=== PATIENT | male | born 1990 | race Caucasian/White ===

== ENCOUNTER 2018-03-13 12:15 | Emergency (ER) | payer SELFPAY ==
--- NOTE | 2018-03-13 13:35 | RAD REPORT ---
EXAM DESCRIPTION: RAD - Chest Pa And Lat (2 Views) - 03/13/2018 1:30 pm CLINICAL HISTORY: Chest pain. COMPARISON: 02/01/2018, 06/09/2014 FINDINGS: The lungs are clear. The heart is normal in size. No displaced fractures. IMPRESSION: No acute or concerning finding suspected.
[2018-03-13 14:58] LABS: Urine Blood NEGATIVE (NEG); Urine Glucose NEGATIVE (NEG); Urine Protein TRACE (NEG); Urine pH 8.5 (5.0-7.0)
--- NOTE | 2018-03-13 14:59 | ER ---
Nurse's Notes [facility] Name: Huseyin Cuba Age: 28 yrs Sex: Male : 1990 Arrival Date: 03/13/2018 Time: 12:16 Bed 25 Private MD: Diagnosis: Pleurisy;Muscle spasm Presentation: 03/13 12:25 Presenting complaint: Patient states: " When I take deep breaths my kidneys hurt. I ph have had fever and I have been throwing up." Pt reports low back pain, N/V, and dizziness upon ambulation, denies diarrhea or urinary symptoms. Transition of care: patient was not received from another setting of care. Onset of symptoms was March 13, 2018. Initial Sepsis Screen: Does the patient meet any 2 criteria? No. Patient's initial sepsis screen is negative. Does the patient have a suspected source of infection? No. Patient's initial sepsis screen is negative. Care prior to arrival: None. 12:25 Method Of Arrival: Ambulatory 12:25 Acuity: RENITA 3 ph Historical: - Allergies: 12:28 No Known Allergies; ph - Home Meds: 12:28 None [Active]; ph - PMHx: 12:28 None; ph - PSHx: 12:28 None; ph - Immunization history:: Adult Immunizations unknown. - Social history:: Smoking status: Patient uses tobacco products, smokes one-half pack cigarettes per day. - Family history:: not pertinent. - Hospitalizations: : No recent hospitalization is reported. Screenin:15 Abuse screen: Denies threats or abuse. Denies injuries from another. Nutritional kr2 screening: No deficits noted. Tuberculosis screening: No symptoms or risk factors identified. Fall Risk None identified. Assessment: 13:25 General: Appears in no apparent distress. comfortable, well groomed, well developed, kr2 well nourished, Behavior is calm, cooperative, appropriate for age. Pain: Complains of pain in lower back and chest when coughing Pain currently is 4 out of 10 on a pain scale. Quality of pain is described as aching, sharp, Pain began 2-3 days ago. Is intermittent. Neuro: Level of Consciousness is awake, alert, obeys commands, Oriented to person, place, time, situation. Cardiovascular: Heart tones S1 S2 present Capillary refill < 3 seconds in bilateral fingers Patient's skin is warm and dry. Respiratory: Reports cough that is non-productive, Airway is patent Respiratory effort is even, unlabored, Respiratory pattern is regular, symmetrical. GI: Abdomen is flat, non-distended. : Urine is clear. EENT: Nares are clear Oral mucosa is moist. Derm: Skin is intact, is healthy with good turgor, Skin is pink, warm \\T\\ dry. Musculoskeletal: Circulation, motion, and sensation intact. 14:30 Reassessment: Patient appears in no apparent distress at this time. Patient and/or kr2 family updated on plan of care and expected duration. Pain level reassessed. Patient is alert, oriented x 3, equal unlabored respirations, skin warm/dry/pink. Patient states feeling better. 15:43 Reassessment: Patient appears in no apparent distress at this time. Patient and/or kr2 family updated on plan of care and expected duration. Pain level reassessed. Patient is alert, oriented x 3, equal unlabored respirations, skin warm/dry/pink. Patient denies pain at this time. Vital Signs: 12:28 BP 116 / 94; Pulse 93; Resp 18; Temp 98.4; Pulse Ox 97% on R/A; Weight 72.57 kg; Height ph 6 ft. 0 in. (182.88 cm); Pain 8/10; 13:45 BP 120 / 72; Pulse 90; Resp 17; Pulse Ox 100% on R/A; kr2 15:30 BP 116 / 90; Pulse 90; Resp 15; Pulse Ox 99% on R/A; kr2 12:28 Body Mass Index 21.70 (72.57 kg, 182.88 cm) ph ED Course: 12:16 Patient arrived in ED. as 12:27 Triage completed. ph 12:30 Arm band placed on. ph 13:10 Erick Sanford MD is Attending Physician. rn 13:10 Patient has correct armband on for positive identification. Bed in low position. Call kr2 light in reach. Side rails up X2. Pulse ox on. NIBP on. 13:14 Patient moved to radiology via wheelchair. kw1 13:30 Chest Pa And Lat (2 Views) XRAY In Process Unspecified. EDMS 13:34 X-ray completed. Patient tolerated procedure well. Patient moved back from radiology. mh1 15:17 Collette Shen, RN is Primary Nurse. kr2 15:19 EKG done, by facilities maintenance technician. reviewed by Erick Sanford MD. at1 15:46 No provider procedures requiring assistance completed. Patient did not have IV access kr2 during this emergency room visit. Administered Medications: 15:24 Drug: Albuterol 2.5 mg Route: Inhalation; kr2 15:45 Follow up: Response: No adverse reaction; Marked relief of symptoms kr2 Outcome: 14:59 Discharge ordered by . rn 15:46 Discharged to home ambulatory. kr2 15:46 Condition: good 15:46 Discharge instructions given to patient, Instructed on discharge instructions, follow up and referral plans. medication usage, Demonstrated understanding of instructions, follow-up care, medications, Prescriptions given X 1. 15:46 Patient left the ED. kr2 Signatures: Dispatcher [employer] EDMS Page Diaz mh1 Charu Zamorano Roman, MD MD rn Consuelo bernard, mill house supervisor EKG Tat1 Selene Adams RN RN Collette Shen RN RN kr2 Pauline Gray 1
--- NOTE | 2018-03-13 14:59 | EDPHYS ---
Physician Documentation [facility] Name: Huseyin Cuba Age: 28 yrs Sex: Male : 1990 Arrival Date: 03/13/2018 Time: 12:16 Bed 25 Private MD: ED Physician Erick Sanford HPI: 03/13 14:54 This 28 yrs old Male presents to ER via Ambulatory with complaints of rn Vomiting, Low Back Pain, Cough. 14:54 The patient or guardian reports cough, that is intermittent, described as mild. Onset: rn The symptoms/episode began/occurred 2 week(s) ago. Severity of symptoms: At their worst the symptoms were mild, in the emergency department the symptoms are unchanged. Modifying factors: The symptoms are alleviated by nothing, the symptoms are aggravated by nothing. The patient has not experienced similar symptoms in the past. Reports smokes, + cough for 2 weeks, lately has been having right sided chest and back pain with breathing, states coughs so much he gags and throws up, no abd pain. . Historical: - Allergies: 12:28 No Known Allergies; ph - Home Meds: 12:28 None [Active]; ph - PMHx: 12:28 None; ph - PSHx: 12:28 None; ph - Immunization history:: Adult Immunizations unknown. - Social history:: Smoking status: Patient uses tobacco products, smokes one-half pack cigarettes per day. - Family history:: not pertinent. - Hospitalizations: : No recent hospitalization is reported. ROS: 14:54 Constitutional: + fever and chills Eyes: Negative for injury, pain, redness, and security intern, Neck: Negative for injury, pain, and swelling, Cardiovascular: Negative for palpitations, and edema, Respiratory: + pleuritic pain, + cough Abdomen/GI: Negative for abdominal pain, nausea, vomiting, diarrhea, and constipation, Back: Negative for injury and pain, MS/Extremity: Negative for injury and deformity, Skin: Negative for injury, rash, and discoloration, Neuro: Negative for headache, weakness, numbness, tingling, and seizure. Exam: 14:54 Constitutional: This is a well developed, well nourished patient who is awake, alert, rn and in no acute distress. Head/Face: Normocephalic, atraumatic. Eyes: Pupils equal round and reactive to light, extra-ocular motions intact. Lids and lashes normal. Conjunctiva and sclera are non-icteric and not injected. Cornea within normal limits. Periorbital areas with no swelling, redness, or edema. Neck: Trachea midline, no thyromegaly or masses palpated, and no cervical lymphadenopathy. Supple, full range of motion without nuchal rigidity, or vertebral point tenderness. No Meningismus. Cardiovascular: Regular rate and rhythm with a normal S1 and S2. No gallops, murmurs, or rubs. Normal PMI, no JVD. No pulse deficits. Respiratory: Lungs have equal breath sounds bilaterally, clear to auscultation and percussion. No rales, rhonchi or wheezes noted. No increased work of breathing, no retractions or nasal flaring. Abdomen/GI: Soft, non-tender, with normal bowel sounds. No distension or tympany. No guarding or rebound. No evidence of tenderness throughout. Back: No spinal tenderness. No costovertebral tenderness. Full range of motion. MS/ Extremity: Pulses equal, no cyanosis. Neurovascular intact. Full, normal range of motion. Equal circumference. Neuro: Awake and alert, GCS 15, oriented to person, place, time, and situation. Cranial nerves II-XII grossly intact. Motor strength 5/5 in all extremities. Sensory grossly intact. Cerebellar exam normal. Normal gait. Vital Signs: 12:28 BP 116 / 94; Pulse 93; Resp 18; Temp 98.4; Pulse Ox 97% on R/A; Weight 72.57 kg; Height ph 6 ft. 0 in. (182.88 cm); Pain 8/10; 13:45 BP 120 / 72; Pulse 90; Resp 17; Pulse Ox 100% on R/A; kr2 15:30 BP 116 / 90; Pulse 90; Resp 15; Pulse Ox 99% on R/A; kr2 12:28 Body Mass Index 21.70 (72.57 kg, 182.88 cm) ph MDM: 13:10 Patient medically screened. rn 14:54 Differential Diagnosis: Bronchitis Influenza Upper Respiratory Infection Viral Syndrome rn Pneumonia. Data reviewed: vital signs, nurses notes, lab test result(s), EKG, radiologic studies, plain films, and as a result, I will discharge patient. Counseling: I had a detailed discussion with the patient and/or guardian regarding: the historical points, exam findings, and any diagnostic results supporting the discharge/admit diagnosis, lab results, radiology results, the need for outpatient follow up, to return to the emergency department if symptoms worsen or persist or if there are any questions or concerns that arise at home. Response to treatment: the patient's symptoms have mildly improved after treatment, and as a result, I will discharge patient. Special discussion: Based on the patient's history, exam, and Dx evaluation, there is no indication for emergent intervention or inpatient Tx. It is understood by the patient/guardian that if the Sx's persist or worsen they need to return immediately for re-evaluation. I discussed with the patient/guardian in detail that at this point there is no indication for admission to the hospital. It is understood, however, that if the symptoms persist or worsen the patient needs to return immediately for re-evaluation. ED course: Pt with pleuritic symptoms in setting of cough/congestion/viral syndrome for 2 weeks, cxr clear, normal vitals, will dc home with abx and OTC anti inflammatories, return precautions given and understood, recommended cessation of smoking.. 03/13 13:15 Order name: Flu; Complete Time: 14:52 rn 03/13 12:57 Order name: Chest Pa And Lat (2 Views) XRAY; Complete Time: 13:43 snw 03/13 13:15 Order name: Strep; Complete Time: 14:52 rn 03/13 14:31 Order name: Throat Culture EDGA 03/13 14:33 Order name: Urine Dipstick--Ancillary (enter results); Complete Time: 15:00 jw5 03/13 12:57 Order name: Urine Dipstick-Ancillary (obtain specimen); Complete Time: 15:25 snw 03/13 13:15 Order name: EKG; Complete Time: 13:16 rn 03/13 13:15 Order name: EKG - Nurse/Tech; Complete Time: 15:24 rn Administered Medications: 15:24 Drug: Albuterol 2.5 mg Route: Inhalation; kr2 15:45 Follow up: Response: No adverse reaction; Marked relief of symptoms kr2 Disposition: 03/13/18 14:59 Discharged to Home. Impression: Pleurisy, Muscle spasm. - Condition is Stable. - Discharge Instructions: Pleurisy. - Prescriptions for Zithromax Z- Jasiel 250 mg Oral Tablet - take 1 tablet by ORAL route as directed for 5 days Day 1 - take two (2) tablets one time. Day 2, 3, 4 , 5 take one (1) tablet once daily.; 6 tablet. - Medication Reconciliation Form, Thank You Letter, Antibiotic Education, Prescription Opioid Use, Work release form form. - Follow up: Private Physician; When: As needed; Reason: Recheck today's complaints, Re-evaluation by your physician. - Problem is an ongoing problem. - Symptoms have improved. Signatures: Dispatcher [employer] EDGA Maddi Parker, DRILL SERGEANT-C DRILL SERGEANT-Csnw Erick Sanford MD MD rn Hall, Patricia RN RN Collette Shen RN RN kr2
[2018-03-13] MEDS ORDERED: ALBUTEROL 2.5 MG/3 ML NEB SOL ONE (15:21)
[2018-03-13 15:51] VITALS: TEMP 98.4
[2018-03-13 15:53] VITALS: BP 116/90; O2SAT 99
--- NOTE | 2018-03-13 16:27 | EKG ---
Test Date: 2018-03-13 Test Time: 15:06:04 Public Stenographer: IAIN MEASUREMENT RESULTS: Intervals: Rate: 62 ME: 140 QRSD: 94 QT: 374 QTc: 379 [place]: P: 39 ME: 140 QRS: 78 T: 72 INTERPRETIVE STATEMENTS: Sinus rhythm with premature atrial complexes Otherwise normal ECG No previous ECG available for comparison Electronically Signed On 03-13-18 16:26:43 CDT by Jose F Ma
== END 2018-03-13 15:46 | disposition home or self-care (01) ==
LOC: ER 12:15
DX: R09.1 Pleurisy (principal); M62.838 Other muscle spasm; F17.210 Nicotine dependence, cigarettes, uncomplicated
CPT/HCPCS: 71046; 81003; 87070; 87081; 87804; 93005; 99284

== ENCOUNTER 2018-04-15 17:39 | Emergency (ER) | payer SELFPAY ==
[2018-04-15] MEDS ORDERED: TETRACAINE HCL 0.5% 2ML OPTH ONE (18:09)
[2018-04-15] MEDS ORDERED: FLUORESCEIN SODIUM 0.6 MG/WRAP ONE (18:09)
--- NOTE | 2018-04-15 18:29 | EDPHYS ---
Physician Documentation [facility] Name: Huseyin Cuba Age: 28 yrs Sex: Male : 1990 Arrival Date: 04/15/2018 Time: 17:42 Bed 13 Private MD: ED Physician Kranthi Sears HPI: 04/15 18:00 This 28 yrs old Male presents to ER via Ambulatory with complaints of Eye cp Problem. 18:00 redness and swelling of area below and medial to right eye. cp 18:00 Onset: The symptoms/episode began/occurred yesterday. Duration: the symptoms are cp continuous. Associated signs and symptoms: Pertinent negatives: ear ache, fever, headache. Patient does not utilize any form of vision correction. 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 Historical: - Allergies: 17:45 No Known Allergies; la1 - Home Meds: 17:51 None [Active]; rb1 - PMHx: 17:45 None; la1 - PSHx: 17:51 None; rb1 - Immunization history:: Adult Immunizations up to date. - Social history:: Smoking status: Patient uses tobacco products, smokes one-half pack cigarettes per day. ROS: 18:05 Constitutional: Negative for body aches, chills, fever, poor PO intake. cp 18:05 Eyes: Negative for discharge, foreign body sensation, pain, visual disturbance. cp 18:05 ENT: Negative for drainage from ear(s), ear pain, sore throat, difficulty swallowing, difficulty handling secretions. 18:05 Cardiovascular: Negative for chest pain. 18:05 Respiratory: Negative for cough, shortness of breath, wheezing. 18:05 Abdomen/GI: Negative for abdominal pain, nausea, vomiting, and diarrhea. 18:05 Neuro: Negative for altered mental status, headache. 18:05 All other systems are negative. Exam: 18:08 Visual Acuity: I have reviewed the nursing documentation. cp 18:08 Constitutional: The patient appears in no acute distress, alert, awake, non-toxic, well cp developed, well nourished. 18:08 Head/face: Noted is erythema, that is mild, swelling, that is mild, of the area medial and below right eye. 18:08 Eyes: Pupils: equal, round, and reactive to light and accomodation, Extraocular movements: intact throughout, Conjunctiva: normal, no exudate, no injection, Corneas: abrasion, is not appreciated, foreign body, is not appreciated, a fluorescein strip employed to appreciate the findings, Sclera: no appreciated abnormality, Lids and lashes: appear normal, bilaterally, Visual shah: are intact. 18:08 ENT: External ear(s): are unremarkable, Ear canal(s): are normal, clear, TM's: bulging, is not appreciated, bilaterally, dullness, bilaterally, erythema, is not appreciated, bilaterally, Nose: is normal, Mouth: Lips: moist, Oral mucosa: pink and intact, moist, Posterior pharynx: is normal, airway is patent, no erythema, no exudate. 18:08 Neck: External neck: is normal, ROM/movement: is normal, is supple, without pain, no range of motions limitations, no meningismus, no nuchal rigidity, Lymph nodes: no appreciated lymphadenopathy. 18:08 Chest/axilla: Inspection: normal, Palpation: is normal, no crepitus, no tenderness. 18:08 Cardiovascular: Rate: normal, Rhythm: regular. 18:08 Respiratory: the patient does not display signs of respiratory distress, Respirations: normal, no use of accessory muscles, no retractions, no splinting, no tachypnea, labored breathing, is not present, Breath sounds: are clear throughout, no decreased breath sounds, no stridor, no wheezing. 18:08 Abdomen/GI: Exam negative for discomfort, distension, guarding, Inspection: abdomen appears normal. 18:08 Skin: cellulitis, is not appreciated. 18:08 Neuro: Orientation: to person, place \T\ time. Mentation: lucid, able to follow commands, Cerebellar function: is grossly normal, Motor: moves all fours, strength is normal. Vital Signs: 17:45 BP 127 / 69; Pulse 79; Resp 16; Temp 97.5; Pulse Ox 100% on R/A; Weight 70.31 kg; la1 Height 6 ft. 1 in. (185.42 cm); 18:39 BP 124 / 67; Pulse 63; Resp 17; Pulse Ox 99% on R/A; rb1 17:45 Body Mass Index 20.45 (70.31 kg, 185.42 cm) la1 Visual Acuity: 17:49 Left Eye Visual acuity 20/20, Pupil size 4 mm, ; Right Eye Visual acuity 20/20, Pupil la1 size 4 mm, ; Both Eyes Visual acuity 20/20; Without Lenses; MDM: 17:52 Patient medically screened. cp 18:00 Differential diagnosis: Corneal abrasion of Corneal ulcer of cellulitis. cp 18:28 Data reviewed: vital signs, nurses notes, and as a result, I will discharge patient. cp 18:28 Counseling: I had a detailed discussion with the patient and/or guardian regarding: the cp historical points, exam findings, and any diagnostic results supporting the discharge/admit diagnosis, the need for outpatient follow up, a family practitioner, to return to the emergency department if symptoms worsen or persist or if there are any questions or concerns that arise at home. 04/15 17:55 Order name: Visual Acuity; Complete Time: 18:14 cp 04/15 17:55 Order name: Eye Tray; Complete Time: 18:16 04/15 17:55 Order name: Fluoresene Opth strip; Complete Time: 18:14 cp Administered Medications: 18:10 Drug: Tetracaine Drops 0.5 % 1 drops Route: Ophthalmic; Site: right eye; rb1 Disposition: 19:00 Chart complete. 04/16 07:49 Co-signature as Attending Physician, Kranthi Sears MD I agree with the assessment and cosmo plan of care. Disposition: 04/15/18 18:29 Discharged to Home. Impression: Irritant contact dermatitis. - Condition is Stable. - Discharge Instructions: Contact Dermatitis. - Prescriptions for Prednisone 20 mg Oral Tablet - take 2 tablet by ORAL route once daily for 5 days; 10 tablet. Vistaril 25 mg Oral capsule - take 1 capsule by ORAL route 4 times per day As needed for itching and burning. may cause drowsiness; 30 capsule. - Medication Reconciliation Form, Thank You Letter, Antibiotic Education, Prescription Opioid Use, Work release form form. - Follow up: Private Physician; When: 2 - 3 days; Reason: Recheck today's complaints. - Problem is new. - Symptoms are unchanged. Signatures: Kranthi Sears MD MD cha Attema, Lee RN RN la1 Kranthi Rivera PA PA cp Barber, Rebecca RN RN rb1 Corrections: (The following items were deleted from the chart) 04/15 18:41 18:29 04/15/2018 18:29 Discharged to Home. Impression: Irritant contact dermatitis. rb1 Condition is Stable. Forms are Medication Reconciliation Form, Thank You Letter, Antibiotic Education, Prescription Opioid Use. Follow up: Private Physician; When: 2 - 3 days; Reason: Recheck today's complaints. Problem is new. Symptoms are unchanged. cp
--- NOTE | 2018-04-15 18:29 | ER ---
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 Transition of care: patient was not received from another setting of care. Onset of symptoms was April 15, 2018. Initial Sepsis Screen: Does the patient meet any 2 criteria? No. Patient's initial sepsis screen is negative. Does the patient have a suspected source of infection? No. Patient's initial sepsis screen is negative. Care prior to arrival: None. 17:44 Method Of Arrival: Ambulatory la1 17:44 Acuity: RENITA 4 la1 Historical: - Allergies: 17:45 No Known Allergies; la1 - Home Meds: 17:51 None [Active]; rb1 - PMHx: 17:45 None; la1 - PSHx: 17:51 None; rb1 - Immunization history:: Adult Immunizations up to date. - Social history:: Smoking status: Patient uses tobacco products, smokes one-half pack cigarettes per day. Screenin:51 Abuse screen: Denies threats or abuse. Nutritional screening: No deficits noted. rb1 Tuberculosis screening: No symptoms or risk factors identified. Fall Risk None identified. Assessment: 17:51 General: Appears in no apparent distress. comfortable, Behavior is calm, cooperative, rb1 Reports chills for. Pain: Denies pain. Neuro: Level of Consciousness is awake, alert, obeys commands, Oriented to person, place, time, situation. Cardiovascular: Capillary refill < 3 seconds is brisk in bilateral fingers. Respiratory: Airway is patent Respiratory effort is even, unlabored, Respiratory pattern is regular, symmetrical. GI: No signs and/or symptoms were reported involving the gastrointestinal system. : No signs and/or symptoms were reported regarding the genitourinary system. EENT: Eyes are tearing on outer aspect of conjuctiva of right eye and inner aspect of conjuctiva of right eye pt. stated, "My eye was crusty this morning.". Derm: Skin is pink, warm \\T\\ dry. Musculoskeletal: Range of motion: intact in all extremities. Vital Signs: 17:45 BP 127 / 69; Pulse 79; Resp 16; Temp 97.5; Pulse Ox 100% on R/A; Weight 70.31 kg; la1 Height 6 ft. 1 in. (185.42 cm); 18:39 BP 124 / 67; Pulse 63; Resp 17; Pulse Ox 99% on R/A; rb1 17:45 Body Mass Index 20.45 (70.31 kg, 185.42 cm) la1 Visual Acuity: 17:49 Left Eye Visual acuity 20/20, Pupil size 4 mm, ; Right Eye Visual acuity 20/20, Pupil la1 size 4 mm, ; Both Eyes Visual acuity 20/20; Without Lenses; ED Course: 17:42 Patient arrived in ED. sb2 17:45 Triage completed. la1 17:45 Arm band placed on right wrist. la1 17:51 Patient has correct armband on for positive identification. Bed in low position. Call rb1 light in reach. Side rails up X 1. Pulse ox on. NIBP on. 17:52 Kranthi Rivera PA is PHCP. cp 17:52 Kranthi Sears MD is Attending Physician. cp 18:06 Dunia Saba, RN is Primary Nurse. rb1 18:40 No provider procedures requiring assistance completed. Patient did not have IV access rb1 during this emergency room visit. Administered Medications: 18:10 Drug: Tetracaine Drops 0.5 % 1 drops Route: Ophthalmic; Site: right eye; rb1 Outcome: 18:29 Discharge ordered by MD. cp 18:40 Discharged to home ambulatory, with significant other. rb1 18:40 Condition: stable 18:40 Discharge instructions given to patient, Instructed on discharge instructions, follow up and referral plans. medication usage, Demonstrated understanding of instructions, follow-up care, medications, Prescriptions given X 2. 18:41 Patient left the ED. rb1 Signatures: Eyad Merino RN RN la1 Kranthi Rivera PA PA cp Dunia Saba, RN RN rb1 Irais Rehman sb2
[2018-04-15 18:49] VITALS: TEMP 97.5
[2018-04-15 18:51] VITALS: BP 124/67; O2SAT 99
== END 2018-04-15 18:41 | disposition home or self-care (01) ==
LOC: ER 17:39
DX: L24.9 Irritant contact dermatitis, unspecified cause (principal)
CPT/HCPCS: 99283

== ENCOUNTER 2019-02-13 09:12 | Emergency (ER) | payer SELFPAY ==
[2019-02-13] MEDS ORDERED: ACETAMINOPHEN 500 MG TAB ONE (10:08)
--- NOTE | 2019-02-13 10:22 | EDPHYS ---
Physician Documentation [facility] Name: Huseyin Cuba Age: 28 yrs Sex: Male : 1990 Arrival Date: 02/13/2019 Time: 09:13 Bed 9 Private MD: None, None ED Physician Kranthi Sears HPI: 02/13 09:58 This 28 yrs old Male presents to ER via Ambulatory with complaints of Flu pm1 Symptoms. 09:58 The patient or guardian reports cough, flu symptoms. Onset: The symptoms/episode pm1 began/occurred 3 day(s) ago. Severity of symptoms: in the emergency department the symptoms are actually worse. Modifying factors: The symptoms are alleviated by nothing, the symptoms are aggravated by nothing. Associated signs and symptoms: Pertinent positives: earache, fever, rhinorrhea, sore throat, nasal congestion, Pertinent negatives: chest pain, diarrhea, vomiting. The patient has not recently seen a physician. Historical: - Allergies: 09:32 No Known Allergies; iw - Home Meds: 09:32 None [Active]; iw - PMHx: 09:32 None; iw - Immunization history:: Adult Immunizations not up to date. - Social history:: Smoking status: Patient uses tobacco products, smokes one-half pack cigarettes per day. - Ebola Screening: : Patient negative for fever greater than or equal to 101.5 degrees Fahrenheit, and additional compatible Ebola Virus Disease symptoms Patient denies exposure to infectious person Patient denies travel to an Ebola-affected area in the 21 days before illness onset No symptoms or risks identified at this time. ROS: 09:58 Eyes: Negative for injury, pain, redness, and discharge. pm1 09:58 Neck: Negative for injury, pain, and swelling, Cardiovascular: Negative for chest pain, palpitations, and edema, Abdomen/GI: Negative for abdominal pain, nausea, vomiting, diarrhea, and constipation. 09:58 Back: Negative for injury and pain, : Negative for injury, bleeding, discharge, and swelling, MS/Extremity: Negative for injury and deformity, Skin: Negative for injury, rash, and discoloration, Neuro: Negative for headache, weakness, numbness, tingling, and seizure. 09:58 Constitutional: Positive for body aches, fever, Negative for poor PO intake. 09:58 ENT: Positive for ear pain, sore throat, Negative for drainage from ear(s), difficulty swallowing, difficulty handling secretions, hoarseness. 09:58 Respiratory: Positive for cough, Negative for shortness of breath, sputum production, wheezing. Exam: 09:58 Constitutional: This is a well developed, well nourished patient who is awake, alert, pm1 and in no acute distress. Head/Face: Normocephalic, atraumatic. Eyes: Pupils equal round and reactive to light, extra-ocular motions intact. Lids and lashes normal. Conjunctiva and sclera are non-icteric and not injected. Cornea within normal limits. Periorbital areas with no swelling, redness, or edema. ENT: Nares patent. No nasal discharge, no septal abnormalities noted. Tympanic membranes are normal and external auditory canals are clear. Oropharynx with no redness, swelling, or masses, exudates, or evidence of obstruction, uvula midline. Mucous membranes moist. Neck: Trachea midline, no thyromegaly or masses palpated, and no cervical lymphadenopathy. Supple, full range of motion without nuchal rigidity, or vertebral point tenderness. No Meningismus. Chest/axilla: Normal chest wall appearance and motion. Nontender with no deformity. No lesions are appreciated. Cardiovascular: Regular rate and rhythm with a normal S1 and S2. No gallops, murmurs, or rubs. Normal PMI, no JVD. No pulse deficits. Respiratory: Lungs have equal breath sounds bilaterally, clear to auscultation and percussion. No rales, rhonchi or wheezes noted. No increased work of breathing, no retractions or nasal flaring. Abdomen/GI: Soft, non-tender, with normal bowel sounds. No distension or tympany. No guarding or rebound. No evidence of tenderness throughout. Back: No spinal tenderness. No costovertebral tenderness. Full range of motion. Skin: Warm, dry with normal turgor. Normal color with no rashes, no lesions, and no evidence of cellulitis. MS/ Extremity: Pulses equal, no cyanosis. Neurovascular intact. Full, normal range of motion. 09:58 Neuro: Orientation: is normal, Motor: is normal, moves all fours, Sensation: is normal, no obvious gross deficits, Gait: is steady, at a normal pace, without difficulty. Vital Signs: 09:30 BP 134 / 96; Pulse 115; Resp 16 S; Temp 100.2; Pulse Ox 99% on R/A; Pain 8/10; iw MDM: 09:27 Patient medically screened. [facility] 10:20 Data reviewed: vital signs. Data interpreted: Pulse oximetry: on room air is 99 %. pm1 Interpretation: normal. Counseling: I had a detailed discussion with the patient and/or guardian regarding: the historical points, exam findings, and any diagnostic results supporting the discharge/admit diagnosis, lab results, the need for outpatient follow up, to return to the emergency department if symptoms worsen or persist or if there are any questions or concerns that arise at home. 02/13 09:31 Order name: Flu; Complete Time: 10:20 pm1 02/13 09:31 Order name: Strep; Complete Time: 10:20 pm1 02/13 09:58 Order name: Throat Culture EDMS Administered Medications: 10:01 Drug: Tylenol 1000 mg Route: PO; Disposition: 11:57 Co-signature as Attending Physician, Kranthi Sears MD I agree with the assessment and [facility] plan of care. Disposition: 02/13/19 10:21 Discharged to Home. Impression: Acute upper respiratory infection, unspecified. - Condition is Stable. - Discharge Instructions: Antibiotic Resistance, Pharyngitis, Upper Respiratory Infection, Adult. - Prescriptions for Tessalon Perles 100 mg Oral Capsule - take 1 capsule by ORAL route every 8 hours As needed; 15 capsule. - Work release form, Medication Reconciliation Form, Thank You Letter, Antibiotic Education form. - Follow up: Emergency Department; When: As needed; Reason: Worsening of condition. Follow up: Private Physician; When: 2 - 3 days; Reason: Recheck today's complaints, Continuance of care, Re-evaluation by your physician. - Problem is new. - Symptoms have improved. Signatures: Dispatcher [employer] EDPR Kranthi Sears MD MD cha Williams, Irene, NIKKI RN iw Rahul Price NP OUTBOUND SALES ADVISOR pm1 Corrections: (The following items were deleted from the chart) 10:22 10:21 02/13/2019 10:21 Discharged to Home. Impression: Acute nasopharyngitis [common pm1 cold]. Condition is Stable. Forms are Medication Reconciliation Form, Thank You Letter, Antibiotic Education, Prescription Opioid Use. Follow up: Emergency Department; When: As needed; Reason: Worsening of condition. Follow up: Private Physician; When: 2 - 3 days; Reason: Recheck today's complaints, Continuance of care, Re-evaluation by your physician. Problem is new. Symptoms have improved. pm1 10:38 10:22 02/13/2019 10:21 Discharged to Home. Impression: Acute upper respiratory iw infection, unspecified. Condition is Stable. Discharge Instructions: Pharyngitis, Upper Respiratory Infection, Adult, Antibiotic Resistance. Prescriptions for Tessalon Perles 100 mg Oral Capsule - take 1 capsule by ORAL route every 8 hours As needed; 15 capsule. and Forms are Medication Reconciliation Form, Thank You Letter, Antibiotic Education. Follow up: Emergency Department; When: As needed; Reason: Worsening of condition. Follow up: Private Physician; When: 2 - 3 days; Reason: Recheck today's complaints, Continuance of care, Re-evaluation by your physician. Problem is new. Symptoms have improved. pm1
--- NOTE | 2019-02-13 10:22 | ER ---
Nurse's Notes [facility] Emergency Department Name: Huseyin Cuba Age: 28 yrs Sex: Male : 1990 Arrival Date: 02/13/2019 Time: 09:13 Bed 9 Private MD: None, None Diagnosis: Acute upper respiratory infection, unspecified Presentation: 02/13 09:29 Presenting complaint: Patient states: nasal congestion, fever, headache, body aches, iw sore throat. Transition of care: patient was not received from another setting of care. Onset of symptoms was February 13, 2019. Risk Assessment: Do you want to hurt yourself or someone else? Patient reports no desire to harm self or others. Initial Sepsis Screen: Does the patient meet any 2 criteria? No. Patient's initial sepsis screen is negative. Does the patient have a suspected source of infection? No. Patient's initial sepsis screen is negative. Care prior to arrival: None. 09:29 Method Of Arrival: Ambulatory iw 09:29 Acuity: RENITA 4 iw Triage Assessment: 10:20 General: Appears in no apparent distress. Behavior is calm, cooperative. iw Historical: - Allergies: 09:32 No Known Allergies; iw - Home Meds: 09:32 None [Active]; iw - PMHx: 09:32 None; iw - Immunization history:: Adult Immunizations not up to date. - Social history:: Smoking status: Patient uses tobacco products, smokes one-half pack cigarettes per day. - Ebola Screening: : Patient negative for fever greater than or equal to 101.5 degrees Fahrenheit, and additional compatible Ebola Virus Disease symptoms Patient denies exposure to infectious person Patient denies travel to an Ebola-affected area in the 21 days before illness onset No symptoms or risks identified at this time. Screenin:35 Abuse screen: Denies threats or abuse. Denies injuries from another. Nutritional iw screening: No deficits noted. Tuberculosis screening: No symptoms or risk factors identified. Fall Risk None identified. Assessment: 10:00 General: Appears in no apparent distress. uncomfortable, Behavior is calm, cooperative. iw General: Reports chills for feeling ill for 2-3 days, fatigue for 2-3 days. Pain: Complains of pain in head. Neuro: Level of Consciousness is awake, alert, obeys commands, Oriented to person, place, time, situation, Moves all extremities. Full function. Cardiovascular: Patient's skin is warm and dry. Respiratory: Respiratory effort is even, unlabored, Respiratory pattern is regular. Derm: Skin is intact, is healthy with good turgor. Musculoskeletal: Range of motion: intact in all extremities. Vital Signs: 09:30 BP 134 / 96; Pulse 115; Resp 16 S; Temp 100.2; Pulse Ox 99% on R/A; Pain 8/10; iw ED Course: 09:13 Patient arrived in ED. mr 09:13 None, None is Private Physician. mr 09:20 Aggie Rousseau, NIKKI is Primary Nurse. iw 09:24 Rahul Price NP is PHCP. pm1 09:24 Kranthi Sears MD is Attending Physician. pm1 09:30 Triage completed. iw 09:30 Arm band placed on. iw 10:00 Patient has correct armband on for positive identification. iw 10:37 No provider procedures requiring assistance completed. Patient did not have IV access iw during this emergency room visit. Administered Medications: 10:01 Drug: Tylenol 1000 mg Route: PO; iw Outcome: 10:21 Discharge ordered by . pm1 10:37 Discharged to home ambulatory, with family. iw 10:37 Condition: good 10:37 Discharge instructions given to patient, Instructed on discharge instructions, follow up and referral plans. medication usage, Demonstrated understanding of instructions, follow-up care, medications, Prescriptions given X 1. 10:38 Patient left the ED. iw Signatures: Candelario Wanda mr Aggie Rousseau RN RN iw Rahul Price NP GRAILS [employer] APPLICATION DEVELOPER pm1
[2019-02-13 10:42] VITALS: BP 134/96; TEMP 100.2; O2SAT 99
== END 2019-02-13 10:38 | disposition home or self-care (01) ==
LOC: ER 09:12
DX: J06.9 Acute upper respiratory infection, unspecified (principal); F17.210 Nicotine dependence, cigarettes, uncomplicated
CPT/HCPCS: 87070; 87081; 87804; 99283

== ENCOUNTER 2021-06-23 12:14 | Emergency (ER) | payer SELFPAY ==
--- OUTSIDE RECORDS SUMMARY | 2021-06-23 12:17 | XMS REPORT | Continuity of Care Document ---
:1990 Author Organization [facility] t Address [address] [place] [address] Care Team Providers Name Role Phone Unavailable Unavailable Unavailable Payers Payer Name Policy Type Policy Number Effective Date Expiration Date S ource Problems This patient has no known problems. Allergies, Adverse Reactions, Alerts Allergy Allergy Status Severity Reaction(s) Onset Inactive Treating Comm ents Source Name Type Date Date Clinician No Known DA Active U 2018-11 [facility] Allergie 0-24 [place] s 00:00: [address] Medications This patient has no known medications. Procedures This patient has no known procedures. Results This patient has no known results.
[2021-06-23] MEDS ORDERED: HYDROCODONE/APAP 7.5/325 MG TAB ONE (14:34)
[2021-06-23] MEDS ORDERED: IBUPROFEN 400 MG TAB ONE (14:34)
--- NOTE | 2021-06-23 15:08 | ER ---
Nurse's Notes [facility] Name: Huseyin Cuba Age: 31 yrs Sex: Male : 1990 Arrival Date: 06/23/2021 Time: 12:18 Bed DIS4 Private MD: Diagnosis: Other specified disorders of teeth and supporting structures Presentation: 06/23 13:06 Chief complaint: Patient states: Willie ear pain, sore throat, tooth pain. Pt getting kg teeth pulled monday. Coronavirus screen: Client denies travel out of the [place] in the last 14 days. At this time, unable to obtain information related to travel outside the [place] At this time, the client does not indicate any symptoms associated with coronavirus-19. Ebola Screen: Patient negative for fever greater than or equal to 101.5 degrees Fahrenheit, and additional compatible Ebola Virus Disease symptoms Patient denies exposure to infectious person. Patient denies travel to an Ebola-affected area in the 21 days before illness onset. Initial Sepsis Screen: Does the patient meet any 2 criteria? No. Patient's initial sepsis screen is negative. Does the patient have a suspected source of infection? No. Patient's initial sepsis screen is negative. Risk Assessment: Do you want to hurt yourself or someone else? Patient reports no desire to harm self or others. Onset of symptoms was June 21, 2021. 13:06 Method Of Arrival: Ambulatory kg 13:06 Acuity: RENITA 4 kg Triage Assessment: 13:08 General: Appears in no apparent distress. Behavior is calm, cooperative, appropriate kg for age, quiet. Pain: Complains of pain in Willie ear pain, throat, tooth pain. EENT: Reports pain when swallowing. Historical: - Allergies: 13:08 No Known Allergies; kg - Home Meds: 13:08 None [Active]; kg - PMHx: 13:08 None; kg - PSHx: 13:08 None; kg - Immunization history:: Adult Immunizations Client reports having NOT received the Covid vaccine. - Social history:: Smoking status: Patient reports the use of cigarette tobacco products, denies chronic smoking, but will smoke occasionally, Patient uses alcohol, weekly. Screenin:10 Abuse screen: Denies threats or abuse. Denies injuries from another. Nutritional kg screening: No deficits noted. Tuberculosis screening: No symptoms or risk factors identified. Fall Risk None identified. Assessment: 13:53 General: Appears in no apparent distress. uncomfortable, Behavior is calm, cooperative, ld1 appropriate for age. Pain: Complains of pain in left buccal mucosa and right buccal mucosa Pain radiates to right ear Pain currently is 9 out of 10 on a pain scale. Quality of pain is described as throbbing, Pain began 2-3 days ago. Is continuous. Neuro: Level of Consciousness is awake, alert, obeys commands, Oriented to person, place, time, situation. Cardiovascular: Capillary refill < 3 seconds Patient's skin is warm and dry. Respiratory: Airway is patent Respiratory effort is even, unlabored, Respiratory pattern is regular, symmetrical. GI: Abdomen is flat, non-distended. : No signs and/or symptoms were reported regarding the genitourinary system. EENT: Throat is reddened. Derm: No signs and/or symptoms reported regarding the dermatologic system. Musculoskeletal: No signs and/or symptoms reported regarding the musculoskeletal system. Vital Signs: 13:06 BP 115 / 70; Pulse 90; Resp 20; Temp 97.4(O); Pulse Ox 100% ; Weight 31.62 kg (M); kg Height 6 ft. 0 in. (182.88 cm); Pain 8/10; 13:53 BP 122 / 75; Pulse 89; Resp 18; Pulse Ox 100% on R/A; ld1 13:06 Body Mass Index 9.45 (31.62 kg, 182.88 cm) kg ED Course: 12:18 Patient arrived in ED. as 13:08 Triage completed. kg 13:10 Patient has correct armband on for positive identification. kg 13:49 Kranthi Rivera PA is PHCP. cp 13:50 Erick Sanford MD is Attending Physician. cp 13:52 Zainab Chandler, NIKKI is Primary Nurse. ld1 13:53 No provider procedures requiring assistance completed. ld1 14:00 Strep Sent. ld1 15:20 Arm band placed on right wrist. ld1 15:20 Patient did not have IV access during this emergency room visit. ld1 Administered Medications: 14:13 Drug: Ibuprofen 800 mg Route: PO; ld1 15:04 Follow up: Response: No adverse reaction ld1 14:13 Drug: Hydrocodone-Acetaminophen (7.5 mg-325 mg) 1 tabs Route: PO; ld1 15:03 Follow up: Response: No adverse reaction ld1 Outcome: 15:08 Discharge ordered by . vinayak 15:20 Discharged to home ambulatory. ld1 15:20 Condition: stable 15:20 Discharge instructions given to patient, Instructed on discharge instructions, follow up and referral plans. medication usage, Demonstrated understanding of instructions, follow-up care, medications, Prescriptions given X 2. 15:20 Patient left the ED. ld1 Signatures: Charu Zamorano Corey, PA PA cp Zainab Chandler, RN RN ld1 Alayna Taylor, RN RN kg
--- NOTE | 2021-06-23 15:08 | EDPHYS ---
Physician Documentation [facility] Name: Huseyin Cuba Age: 31 yrs Sex: Male : 1990 Arrival Date: 06/23/2021 Time: 12:18 Bed DIS4 Private MD: ED Physician Erick Sanford HPI: 06/23 14:15 This 31 yrs old Male presents to ER via Ambulatory with complaints of Sore cp Throat, Toothache, Ear Pain. 14:15 The patient presents with pain. cp 14:15 The problem is located in the diffusely. Onset: The symptoms/episode began/occurred cp yesterday. Duration: The symptoms are continuous. Associated signs and symptoms: Pertinent positives: sore throat, ear pain, Pertinent negatives: dysphagia, fever, inability to eat. Historical: - Allergies: 13:08 No Known Allergies; kg - Home Meds: 13:08 None [Active]; kg - PMHx: 13:08 None; kg - PSHx: 13:08 None; kg - Immunization history:: Adult Immunizations Client reports having NOT received the Covid vaccine. - Social history:: Smoking status: Patient reports the use of cigarette tobacco products, denies chronic smoking, but will smoke occasionally, Patient uses alcohol, weekly. ROS: 14:20 Constitutional: Negative for body aches, chills, fever, poor PO intake. cp 14:20 Eyes: Negative for injury, pain, redness, and discharge. cp 14:20 ENT: Positive for ear pain, sore throat, Negative for drainage from ear(s), difficulty swallowing, difficulty handling secretions. 14:20 Neck: Negative for pain with movement, pain at rest, stiffness, tenderness. 14:20 Cardiovascular: Negative for chest pain, palpitations. 14:20 Respiratory: Negative for cough, shortness of breath, wheezing. 14:20 Abdomen/GI: Negative for abdominal pain, nausea, vomiting, and diarrhea. 14:20 Skin: Negative for cellulitis, rash. 14:20 Neuro: Negative for altered mental status, headache, weakness. 14:20 All other systems are negative. Exam: 14:24 Constitutional: The patient appears in no acute distress, alert, awake, non-toxic, well cp developed, well nourished. 14:24 Head/Face: Normocephalic, atraumatic. cp 14:25 Eyes: Periorbital structures: appear normal, Conjunctiva: normal, no exudate, no cp injection, Sclera: no appreciated abnormality, Lids and lashes: appear normal, bilaterally. 14:25 ENT: External ear(s): are unremarkable, Ear canal(s): are normal, clear, TM's: dullness, bilaterally, Nose: is normal, Mouth: Lips: moist, Oral mucosa: moist, Tongue: is normal, Posterior pharynx: Airway: no evidence of obstruction, patent, Tonsils: are normal in appearance, Uvula: normal, swelling, is not appreciated, erythema, is not appreciated, Dental exam: abscess, is not appreciated, dental caries, that is severe, diffusely, gum swelling, not appreciated, missing teeth, diffusely, pain, that is moderate, diffusely, Voice: is normal. 14:25 Neck: ROM/movement: is normal, is supple, without pain, no range of motions limitations, no meningismus, Lymph nodes: no appreciated lymphadenopathy. 14:25 Chest/axilla: Inspection: normal. 14:25 Cardiovascular: Rate: normal. cp 14:25 Respiratory: the patient does not display signs of respiratory distress, Respirations: normal. Vital Signs: 13:06 BP 115 / 70; Pulse 90; Resp 20; Temp 97.4(O); Pulse Ox 100% ; Weight 31.62 kg (M); kg Height 6 ft. 0 in. (182.88 cm); Pain 8/10; 13:53 BP 122 / 75; Pulse 89; Resp 18; Pulse Ox 100% on R/A; ld1 13:06 Body Mass Index 9.45 (31.62 kg, 182.88 cm) kg MDM: 13:55 Patient medically screened. cp 15:00 Differential diagnosis: dental caries, gingivitis, dental abscess, pericoronitis. cp 15:08 Data reviewed: vital signs, nurses notes. cp 15:08 Counseling: I had a detailed discussion with the patient and/or guardian regarding: the cp historical points, exam findings, and any diagnostic results supporting the discharge/admit diagnosis, the need for outpatient follow up, for definitive care, a dentist, to return to the emergency department if symptoms worsen or persist or if there are any questions or concerns that arise at home. ED course: VSS. Patient appears non-toxic. Will discharge to home for continued monitoring. 06/23 13:06 Order name: Strep kg 06/23 13:06 Order name: Group A Streptococcus Rapid Sc EDMS 06/23 15:19 Order name: Throat Culture EDMS Administered Medications: 14:13 Drug: Ibuprofen 800 mg Route: PO; ld1 15:04 Follow up: Response: No adverse reaction ld1 14:13 Drug: Hydrocodone-Acetaminophen (7.5 mg-325 mg) 1 tabs Route: PO; ld1 15:03 Follow up: Response: No adverse reaction ld1 Disposition Summary: 06/23/21 15:08 Discharge Ordered Location: Home cp Problem: an ongoing problem cp Symptoms: have improved cp Condition: Stable cp Diagnosis - Other specified disorders of teeth and supporting structures cp Followup: cp - With: Private Physician - When: 2 - 3 days - Reason: Recheck today's complaints Discharge Instructions: - Discharge Summary Sheet ss - Dental Pain cp Forms: - Work release form ss - Medication Reconciliation Form cp - Thank You Letter cp - Antibiotic Education cp - Prescription Opioid Use cp Prescriptions: - Amoxicillin 875 mg Oral Tablet - take 1 tablet by ORAL route every 12 hours for 10 days; 20 tablet; Refills: 0, cp Product Selection Permitted - Naprosyn 500 mg Oral Tablet - take 1 tablet by ORAL route 2 times per day take with food; 20 tablet; Refills: cp 0, Product Selection Permitted Addendum: 06/26/2021 07:02 Co-signature as Attending Physician, Erick Sanford MD. r n Signatures: Dispatcher [employer] [facility] Erick Sanford MD MD rn Page, Corey, PA PA cp Zainab Chandler RN RN ld1 Alayna Taylor RN RN kg
[2021-06-24 11:56] VITALS: TEMP 97.4; O2SAT 100
[2021-06-24 11:58] VITALS: BP 122/75
== END 2021-06-23 15:20 | disposition home or self-care (01) ==
LOC: ER 12:14
DX: K08.89 Other specified disorders of teeth and supporting structures (principal); F17.210 Nicotine dependence, cigarettes, uncomplicated
CPT/HCPCS: 87070; 87081; 99283

== ENCOUNTER 2021-06-30 13:25 | Emergency (ER) | payer SELFPAY ==
--- OUTSIDE RECORDS SUMMARY | 2021-06-30 13:27 | XMS REPORT | Continuity of Care Document ---
:1990 Author Organization [facility] t Address [address] [place] [address] Care Team Providers Name Role Phone Jesus ARSHAD Attending Clinician Payers Payer Name Policy Type Policy Number Effective Date Expiration Date S ource Problems This patient has no known problems. Allergies, Adverse Reactions, Alerts Allergy Allergy Status Severity Reaction(s) Onset Inactive Treating Comm ents Source Name Type Date Date Clinician No Known DA Active U 2018-11 [facility] Allergie 0-24 [place] s 00:00: [address] Medications This patient has no known medications. Procedures This patient has no known procedures. Encounters Start End Encounter Admission Attending Care Care Encounter Source Date/Time Date/Time Type Type Clinicians Facility Department ID 2021-05-11 2021-05-11 MANNY Corona [id number] 21:21:00 22:26:00 Anila Reynolds [id number] [place] [id number] [place] [id number] Results This patient has no known results.
== END 2021-06-30 14:06 | disposition left against medical advice (07) ==
LOC: ER 13:25
DX: Z02.9 Encounter for administrative examinations, unspecified (principal)

== ENCOUNTER 2022-12-12 13:55 | Emergency (ER) | payer SELFPAY ==
--- OUTSIDE RECORDS SUMMARY | 2022-12-12 14:01 | XMS REPORT | Continuity of Care Document ---
:1990 Author Organization [facility] t Address [address] [place] [address] Care Team Providers Name Role Phone Nilo Castano DO Attending Clinician Kayden Cool Attending Clinician Josefa Small Attending Clinician JOSEFA LEE Attending Clinician Unavailable BRIANNA SERRATO Attending Clinician Unavailable Physician, No Primary or Family Admitting Clinician Unavaila ble BRIANNA SERRATO S Admitting Clinician Unavailable Payers Payer Name Policy Type Policy Number Effective Date Expiration Date S ource Problems Condition Condition Condition Status Onset Resolution Last Treating Co mments Source Name Details Category Date Date Treatment Clinician Date No known No known Disease Unive rs active active ity of problems problems [facility] Allergies, Adverse Reactions, Alerts Allergy Allergy Status Severity Reaction(s) Onset Inactive Treating Comm ents Source Name Type Date Date Clinician No Known NA Active [facility]: l 28 ([place] No Known NA Active [facility] 02-01 [facility] 15:57: l 15 ([place]) No Known NA Active [facility] 01-29 [facility] 13:07: l 44 ([place]) No Known NA Active [facility] 01-29 [facility] 12:27: l 24 ([place] [facility]) No Known NA Active [facility] All[facility] 3-05 [facility]osp[facility] 12:03: l 21 ([facility] nt) No Known DA Active U 2018-11 [facility] All[facility]ie 0-24 [facility] 00:[facility]: [facility] 00 [facility] No Known DA Active U 2018-11 [facility] Allergie 0-24 [place] [facility] 00:[facility]: [facility] NO KNOWN Drug Active Univers ALLERGIE Class ity of S [facility] Social History Social Habit Start Date Stop Date Quantity Comments Source Exposure to Yes [facility] SARS-CoV-2 (event) [facility] Sex Assigned At [birth year] [facility] 00:00:00 00:00:00 Medical Branch Smoking Status Start Date Stop Date Source Unknown if ever smoked [facility] Medications Ordered Filled Start Stop Current Ordering Indication Dosage Frequency Signature Comments Components Source Medication Medication Date Date Medication? Clinician (SIG) Name Name chlorphenir Yes [id number] 4mg Take 1 Univers amine 4 mg 8-17 tablet by ity of tablet 00:00: mouth [place] 00 every 6 Medical (six) Branch hours as needed for Allergies or Runny nose. calcium/mag Yes [id number] 1{each} Take 1 Univers nesium/zinc 8-17 Each by ity o f (CALCIUM-MA 00:00: mouth [place] GNESUIUM-ZI 00 daily. Medica l [place]) Branch 333-133-5 mg Tab benzonatate Yes [id number] 100mg Take 1 Univers 100 mg 8-17 capsule by ity of capsule 00:00: mouth 3 [place] 00 (three) Medical times Branch daily as needed for Cough. vitamin 2020- No [id number] 1{tbl} Take 1 Univers D3-folic 8-17 09-17 tablet by ity o f acid 125 00:00: 04:59 mouth [place] mcg (5,000 00 :00 daily for Medi bibi unit)-1 mg 30 days. Branc h Tab ibuprofen Yes [id number] 600mg Take 1 Univers 600 mg 8-05 tablet by ity of tablet 00:00: mouth [place] 00 every 6 Medical (six) Branch hours as needed for Pain (scale 4-6). benzonatate Yes [id number] 100mg Take 1 Univers 100 mg 8-05 capsule by ity of capsule 00:00: mouth 3 [place] 00 (three) Medical times Branch daily as needed for Cough. ondansetron Yes [id number] 4mg Take 1 Univers (ZOFRAN 8-05 tablet by ity of ODT) 4 mg 00:00: mouth [place] disintegrat 00 every 8 Medic al ing tablet (eight) Branch hours as needed for Nausea and Vomiting (N/V). ibuprofen Yes [id number] 600mg Take 1 Univers 600 mg 8-05 tablet by ity of tablet 00:00: mouth [place] 00 every 6 Medical (six) Branch hours as needed for Pain (scale 4-6). ondansetron Yes [id number] 4mg Take 1 Univers (ZOFRAN 8-05 tablet by ity of ODT) 4 mg 00:00: mouth [place] disintegrat 00 every 8 Medic al ing tablet (eight) Branch hours as needed for Nausea and Vomiting (N/V). benzonatate No [id number] 100mg Take 1 Univers 100 mg 8-05 08-17 capsule by ity of capsule 00:00: 00:00 mouth 3 [place] 00 :00 (three) Medical times Branch daily as needed for Cough. penicillin 2020- No 500mg 500 mg, Un henry v potassium 05-12 Oral, ity of (PEN-VEE K) 03:45: 03:14 [place]CE, 1 [place] 500 00 :00 dose, Tue Medi bibi mg 05/11/21 at Branch 2245, REGIS
Re ason for Anti-Infec tive: Documented Infection< br>Documen lowell Infection Site: HEENT
D uration of Therapy: 7 days HYDROcodone 2020- No 1{tbl} 1 tablet, Univers -acetaminop 05-12 Oral, ONCE i ty of hen (NORCO) 03:45: 03:14 NOW, 1 [place] as 10-325 mg 00 :00 dose, Tue Medic al tablet 1 05/11/21 at [facility] h tablet 2245, Routine ketorolac 2020- No 60mg 60 mg, Unive rs (TORADOL) 6-16 06-16 Intramuscu ity of injection 03:45: 03:13 lar, ONCE, [place] 60 mg 00 :00 1 dose, Medical e Branch 05/11/21 at 2245, REGIS
Fa culty member approving Restricted medication : EMERGENCY ROOM, ibuprofen Yes [id number] 800mg Take 1 U nivers 800 mg 6-15 tablet by ity of tablet 00:00: mouth [place] 00 every 8 Medical (eight) Branch hours as needed for Pain (scale 4-6). ibuprofen Yes [id number] 800mg Take 1 U nivers 800 mg 6-15 tablet by ity of tablet 00:00: mouth [place] 00 every 8 Medical (eight) Branch hours as needed for Pain (scale 4-6). ibuprofen Yes [id number] 800mg Take 1 U nivers 800 mg 6-15 tablet by ity of tablet 00:00: mouth [place] 00 every 8 Medical (eight) Branch hours as needed for Pain (scale 4-6). penicillin 2020- No [id number] 500mg Take 1 Univers v potassium 6-15 06-26 tablet by it y of 500 mg 00:00: 04:59 mouth 4 [place] tablet 00 :00 (four) Medical times Branch daily for 10 days. acetaminoph 2020- No [id number] 1{tbl} Take 1 U nivers en-codeine 6-15 06-23 tablet by ity of 300-30 mg 00:00: 04:59 mouth [place] tablet 00 :00 every 6 Medical (six) Branch hours as needed for Pain (scale 7-10) for up to 7 days. Indication s: acute pain Vital Signs Vital Name Observation Time Observation Value Comments Source Oxygen saturation in 2021-07-13 20:39:00 99 /min [facility] Arterial blood by [facility] Pulse oximetry Branch Systolic blood 2021-07-13 20:39:00 131 mm[Hg] Univer sity of pressure [facility] Diastolic blood 2021-07-13 20:39:00 78 mm[Hg] [facility] Heart rate 2021-07-13 20:39:00 87 /min [facility] [place] [facility] Body temperature 2021-07-13 20:39:00 36.78 Stacey [facility] [place] [facility] Respiratory rate 2021-07-13 20:39:00 14 /min [facility] [place] [facility] Body weight 2021-07-13 20:39:00 72.576 kg [facility]i ty [facility] [place] [facility] Systolic blood 2021-07-01 19:46:00 127 mm[Hg] Univer sity of pressure [place] [facility] Diastolic blood 2021-07-01 19:46:00 81 mm[Hg] Unive rsity of pressure [place] [facility] Heart rate 2021-07-01 19:46:00 93 /min [facility] [place] [facility] Body temperature 2021-07-01 19:46:00 36.89 Stacey [facility] [place] [facility] Respiratory rate 2021-07-01 19:46:00 14 /min [facility] [place] [facility] Body weight 2021-07-01 19:46:00 72.576 kg [facility]i ty [facility] [place] [facility] Oxygen saturation in 2021-07-01 19:46:00 100 /min University of Arterial blood by [facility] bibi Pulse oximetry Branch Systolic blood 2021-05-12 02:18:00 132 mm[Hg] Univer sity of pressure [place] [facility] Diastolic blood 2021-05-12 02:18:00 86 mm[Hg] Unive rsity of pressure [place] [facility] Heart rate 2021-05-12 02:18:00 90 /min [facility] [place] [facility] Body temperature 2021-05-12 02:18:00 37.22 Stacey [facility] [place] [facility] Respiratory rate 2021-05-12 02:18:00 16 /min [facility] [place] [facility] Body weight 2021-05-12 02:18:00 73.483 kg [facility]i ty [facility] [place] [facility] Oxygen saturation in 2021-05-12 02:18:00 99 /min University of Arterial blood by [place] [employer] bibi Pulse oximetry Branch Systolic blood 2021-05-12 02:18:00 132 mm[Hg] Univer sity of pressure [place] [facility] Diastolic blood 2021-05-12 02:18:00 86 mm[Hg] Unive rsity of pressure [place] [facility] Heart rate 2021-05-12 02:18:00 90 /min [facility]i [facility] [place] [facility] Body temperature 2021-05-12 02:18:00 37.22 Stacey [facility] Respiratory rate 2021-05-12 02:18:00 16 /min [facility] Body weight 2021-05-12 02:18:00 73.483 kg Universi of [facility] Oxygen saturation in 2021-05-12 02:18:00 99 /min University Arterial blood by [facility] Pulse oximetry Branch Procedures Procedure Date / Time Performed Performing Clinician Sour e NOTICE OF PRIVACY 2021-07-13 20:36:59 Doctor Unassigned, No [facility] Name Medical Branch CONSENT/REFUSAL FOR 2021-07-13 20:34:53 Doctor Unassigned, No Un [facility] [place] DIAGNOSIS AND Name Medical Branch TREATMENT CONSENT/REFUSAL FOR 2021-07-01 19:43:09 Doctor Unassigned, No [facility] [place] DIAGNOSIS AND Name Medical Branch TREATMENT Encounters Start End Encounter Admission Attending Care Care Encounter Source Date/Time Date/Time Type Type Clinicians Facility Department ID 2019-12-07 Inpatient [facility] HILARIA [id number] [facility] 13:02:00 41 [facility] 2021-07-13 2021-07-13 Emergency Castano, [facility] [id number] Univers 15:40:00 16:18:00 Nilo Reynolds [id number] i ty of [place] [address] [place] [address] [id number] [place] [id number] [place] 2021-07-13 2021-07-13 Emergency X [facility] ERT [id number] Univers 15:34:00 15:34:00 ity of [facility] 2021-07-01 2021-07-01 Emergency Felix, K [facility] [id number] Univers 14:47:00 16:40:00 Sienna Rodolfo [id number] i ty of [place] [address] [place] [address] [id number] [place] [id number] Branch 2021-07-01 2021-07-01 Emergency X [facility] ERT [id number] Univers 14:42:00 14:42:00 ity of [facility] 2021-05-11 2021-05-11 [facility] [id number] 21:21:00 22:26:00 Josefa [place] [id number] [place] [id number] [place] [id number] [facility] 2021-05-11 2021-05-11 Emergency Lee, [facility] [id number] Univers 21:21:00 22:26:00 [facility] [id number] i ty of [place] [id number] [facility] [id number] [address] 2021-05-11 2021-05-11 Emergency X LEE, [facility] ERT [id number] Univers 21:21:00 21:21:00 JOSEFA pool [facility] 2021-01-29 2021-01-29 Emergency DEANNA SERRATO QER [id number] 12:02:00 12:02:00 [id number] Hospi jessica oliveira ([facility]) Results This patient has no known results.
[2022-12-12] MEDS ORDERED: TDAP (DIPHTH,PERTUSS(ACELL),TET VAC) 0.5 ML VIAL IMVAC ONE (14:14)
--- NOTE | 2022-12-12 14:14 | ER ---
Nurse's Notes [facility] Name: Huseyin Cuba Age: 32 yrs Sex: Male : 1990 Arrival Date: 12/12/2022 Time: 14:03 Bed 10 Private MD: Diagnosis: Puncture wound without foreign body of foot Presentation: 12/12 14:11 Chief complaint: Patient states: I was at work and about 2 hours ago I stepped on a 5 nayla nail with my left pinky toe. Coronavirus screen: Vaccine status: Patient reports being unvaccinated. Client denies travel out of the [place] in the last 14 days. Ebola Screen: Patient negative for fever greater than or equal to 101.5 degrees Fahrenheit, and additional compatible Ebola Virus Disease symptoms Patient denies exposure to infectious person. Patient denies travel to an Ebola-affected area in the 21 days before illness onset. Initial Sepsis Screen: Does the patient meet any 2 criteria? No. Patient's initial sepsis screen is negative. Does the patient have a suspected source of infection? No. Patient's initial sepsis screen is negative. Risk Assessment: Do you want to hurt yourself or someone else? Patient reports no desire to harm self or others. Onset of symptoms was December 12, 2022. 14:11 Method Of Arrival: Ambulatory [facility] 14:11 Acuity: RENITA 4 5 Triage Assessment: 14:12 General: Appears in no apparent distress. slender, well groomed, well developed, [facility] Behavior is calm, cooperative, appropriate for age. Pain: Complains of pain in left foot. Historical: - Allergies: 14:12 No Known Allergies; 5 - PMHx: 14:12 None; [facility] - Immunization history:: Adult Immunizations up to date. - Social history:: Smoking status: Patient reports the use of cigarette tobacco products, smokes one-half pack cigarettes per day. Screenin:13 Abuse screen: Denies threats or abuse. Denies injuries from another. Nutritional [facility] screening: No deficits noted. Tuberculosis screening: No symptoms or risk factors identified. 14:27 [facility] ED Fall Risk Assessment (Adult) History of falling in the last 3 months, kr3 including since admission No falls in past 3 months (0 pts) Confusion or Disorientation No (0 pts) Intoxicated or Sedated No (0 pts) Impaired Gait No (0 pts) Mobility Assist Device Used No (0 pt) Altered Elimination No (0 pt) Score/Fall Risk Level 0 - 2 = Low Risk Oriented to surroundings, Maintained a safe environment, Educated pt \T\ family on fall prevention, incl call for assistance when getting out of bed. Assessment: 14:27 Reassessment: Patient appears in no apparent distress at this time. No changes from kr3 previously documented assessment. Vital Signs: 14:11 BP 118 / 66; Pulse 72; Resp 16; Temp 97.8; Pulse Ox 98% ; Weight 72.57 kg; Height 6 ft. jh5 0 in. (182.88 cm); Pain 0/10; 14:11 Body Mass Index 21.70 (72.57 kg, 182.88 cm) 5 ED Course: 14:03 Patient arrived in ED. am2 14:07 [facility] j[facility]7 14:07 Amador Rosario MD is Attending Physician. 7 14:10 Beth Patel RN is Primary Nurse. kr3 14:12 Triage completed. jh5 14:12 Arm band placed on right wrist. jh5 14:13 No provider procedures requiring assistance completed. Patient did not have IV access 5 during this emergency room visit. 14:15 Bed in low position. Call light in reach. Side rails up X 1. 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 Exp: kr3 06/10/2023. Lot #: [id number]. } Route: IM; Site: right deltoid; 14:27 Follow up: Response: No adverse reaction kr3 14:18 Drug: Ibuprofen 600 mg Route: PO; kr3 14:27 Follow up: Response: No adverse reaction kr3 Medication: 14:28 Vaccine Information Statement (VIS) provided today. Questions and/or concerns kr3 addressed. VIS edition date: July 02, 2021. Outcome: 14:13 Discharge ordered by . jh7 14:27 Discharged to home ambulatory. kr3 14:27 Condition: stable 14:27 Discharge instructions given to patient, Instructed on discharge instructions, follow up and referral plans. Demonstrated understanding of instructions, follow-up care. 14:28 Patient left the ED. kr3 Signatures: Consuelo Brown Jessica RN RN jh5 Marzena Chin FNP ASSEMBLY LINE SUPERVISOR jh7 Beth Patel RN RN kr3
--- NOTE | 2022-12-12 14:14 | EDPHYS ---
Physician Documentation [facility] Name: Huseyin Cuba Age: 32 yrs Sex: Male : 1990 Arrival Date: 12/12/2022 Time: 14:03 Bed 10 Private MD: ED Physician Amador Rosario HPI: 12/12 14:12 This 32 yrs old Male presents to ER via Ambulatory with complaints of Puncture Wound To jh7 Foot - stepped on nail. 14:12 The patient presents with a puncture wound, from a nail. The complaints affect the left jh7 foot. Context: The problem was sustained at work, resulted from the patient stepping on a nail, the patient can fully bear weight, the patient is able to ambulate. Onset: The symptoms/episode began/occurred acutely. Historical: - Allergies: 14:12 No Known Allergies; jh5 - PMHx: 14:12 None; [facility] - Immunization history:: Adult Immunizations up to date. - Social history:: Smoking status: Patient reports the use of cigarette tobacco products, smokes one-half pack cigarettes per day. ROS: 14:12 Constitutional: Negative for fever, chills, and weight loss, Neck: Negative for injury, jh7 pain, and swelling, Cardiovascular: Negative for chest pain, palpitations, and edema, Respiratory: Negative for shortness of breath, cough, wheezing, and pleuritic chest pain, Back: Negative for injury and pain, MS/Extremity: Negative for injury and deformity, Neuro: Negative for headache, weakness, numbness, tingling, and seizure. 14:12 Skin: Positive for puncture. 14:12 All other systems are negative. Exam: 14:12 Constitutional: This is a well developed, well nourished patient who is awake, alert, jh7 and in no acute distress. Head/Face: Normocephalic, atraumatic. Cardiovascular: Regular rate and rhythm with a normal S1 and S2. No gallops, murmurs, or rubs. Normal PMI, no JVD. No pulse deficits. Respiratory: Lungs have equal breath sounds bilaterally, clear to auscultation and percussion. No rales, rhonchi or wheezes noted. No increased work of breathing, no retractions or nasal flaring. Abdomen/GI: Soft, non-tender, with normal bowel sounds. No distension or tympany. No guarding or rebound. No evidence of tenderness throughout. Back: No spinal tenderness. No costovertebral tenderness. Full range of motion. MS/ Extremity: Pulses equal, no cyanosis. Neurovascular intact. Full, normal range of motion. Neuro: Awake and alert, GCS 15, oriented to person, place, time, and situation. Motor strength 5/5 in all extremities. Sensory grossly intact. Normal gait. 14:12 Skin: injury, puncture(s), that are superficial, of the Plantar surface of left fifth digit. Vital Signs: 14:11 BP 118 / 66; Pulse 72; Resp 16; Temp 97.8; Pulse Ox 98% ; Weight 72.57 kg; Height 6 ft. jh5 0 in. (182.88 cm); Pain 0/10; 14:11 Body Mass Index 21.70 (72.57 kg, 182.88 cm) jh5 MDM: 14:07 Patient medically screened. 7 14:22 Differential diagnosis: Puncture wound. Data reviewed: vital signs, nurses notes. jh7 Counseling: I had a detailed discussion with the patient and/or guardian regarding: the historical points, exam findings, and any diagnostic results supporting the discharge/admit diagnosis, to return to the emergency department if symptoms worsen or persist or if there are any questions or concerns that arise at home. 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 Exp: kr3 06/10/2023. Lot #: [id number]. } Route: IM; Site: right deltoid; 14:27 Follow up: Response: No adverse reaction kr3 14:18 Drug: Ibuprofen 600 mg Route: PO; kr3 14:27 Follow up: Response: No adverse reaction kr3 Disposition: 16:14 Co-signature as Attending Physician, Amador Rosario MD I reviewed the patient's care rt provided by the Advanced Practice Provider and agree with the diagnosis and treatment plan. Disposition Summary: 12/12/22 14:13 Discharge Ordered Location: Home [facility] Problem: new jh7 Symptoms: are unchanged jh7 Condition: Stable jh7 Diagnosis - Puncture wound without foreign body of foot jh7 Followup: 7 - With: Private Physician - When: 2 - 3 days - Reason: Recheck today's complaints Discharge Instructions: - Discharge Summary Sheet jh7 - Puncture Wound jh7 Forms: - Medication Reconciliation Form jh7 - Thank You Letter jh7 Signatures: Gloria Hernandez RN RN jh5 Marzena Chin FNP FNP jh7 Beth Patel RN RN kr3 Amador Rosario MD MD rt
[2022-12-12] MEDS ORDERED: IBUPROFEN 200 MG TAB PO ONE (14:16)
[2022-12-12] MEDS ORDERED: IBUPROFEN 400 MG TAB ONE (14:16)
== END 2022-12-12 14:28 | disposition home or self-care (01) ==
LOC: ER 13:55
DX: S91.332A Puncture wound without foreign body, left foot, initial encounter (principal); F17.210 Nicotine dependence, cigarettes, uncomplicated; Z23 Encounter for immunization
CPT/HCPCS: 90471; 99283